=== PATIENT | male | born 1970 | race Caucasian/White ===

== ENCOUNTER 2020-01-23 17:20 | Emergency (ER) | payer OTHER ==
[2020-01-23 17:30] VITALS: RESP 18
[2020-01-23] MEDS ORDERED: IBUPROFEN 600 MG TAB PO STA (17:35)
[2020-01-23 18:06] VITALS: BP 118/77; PULSE 74; TEMP 98.3
--- NOTE | 2020-01-23 18:08 | XR ---
EXAMINATION TYPE: XR hand complete LT DATE OF EXAM: 01/23/2020 COMPARISON: None HISTORY: Pain TECHNIQUE: Three-view left hand FINDINGS: No acute fractures or dislocations are evident. Soft tissues appear within normal limits. J oint spaces and mild narrowing IMPRESSION: 1. No acute osseous abnormality. 2. Follow-up exams can be performed 7-10 days from acute trauma for continued pain.
--- NOTE | 2020-01-23 18:09 | XR ---
EXAMINATION TYPE: XR wrist complete LT DATE OF EXAM: 01/23/2020 COMPARISON: None HISTORY: Pain TECHNIQUE: 4 view left wrist FINDINGS: Acute fractures or dislocations are evident. Joint spaces appear preserved. Soft tissues ar e normal. Follow-up studies can be performed 7-10 days from acute trauma for continued pain. If there is pain a t the anatomic snuff box, nuclear medicine bone scan could be performed for additional evaluation. IMPRESSION: 1. Normal 4 view left wrist
--- NOTE | 2020-01-23 18:24 | ED ---
General Adult HPI - General Chief complaint: Fall Stated complaint: Wrist injury-[facility] Time Seen by Provider: 01/23/20 17:31 Source: patient, RN notes reviewed, old records reviewed Mode of arrival: ambulatory Limitations: no limitations - History of Present Illness Initial comments: 49-year-old male patient presents ED for chief complaint of fall on outstretched arm with left wrist pain. Patient reports that he was walking down a ladder was maybe 2 feet off the ground when he stepped down he stepped on something and lost his balance and fell on his left side. Patient had a fall on outstretched arm line on his left hip. Denies any trauma to head or neck. Chief complaint is left wrist pain. Systemic: Pt denies fatigue, fever/chills, rash. Pt denies weakness, night sweats, weight loss. Neuro: Pt denies headache, visual disturbances, syncope or pre-syncope. HEENT: Pt denies ocular discharge or irritation, otalgia, rhinorrhea, pharyngitis or notable lymphadenopathy. Cardiopulmonary: Pt denies chest pain, SOB, heart palpitations, dyspnea on exertion. Abdominal/GI: Pt denies abdominal pain, n/v/d. : Pt denies dysuria, burning w/ urination, frequency/urgency. Denies new onset urinary or bowel incontinence. Neuro: Pt denies new onset weakness, paresthesias. - Related Data Home Medications Medication Instructions Recorded Confirmed No Known Home Medications 04/04/15 04/04/15 Allergies Allergy/AdvReac Type Severity Reaction Status Date / Time meperidine HCl [From Demerol] Allergy Unknown Verified 01/23/20 17:30 Review of Systems ROS Statement: Those systems with pertinent positive or pertinent negative responses have been documented in the HPI. ROS Other: All systems not noted in ROS Statement are negative. Past Medical History Past Medical History: No Reported History History of Any Multi-Drug Resistant Organisms: None Reported Past Surgical History: Hernia Repair Past Psychological History: No Psychological Hx Reported Smoking Status: Light tobacco smoker Past Alcohol Use History: Rare Past Drug Use History: None Reported General Exam - General Exam Comments Initial Comments: Constitutional: NAD, AOX3, Pt has pleasant affect. HEENT: NC/AT, trachea midline, neck supple, no lymphadenopathy. Posterior pharynx non erythematous, without exudates. External ears appear normal, without discharge. Mucous membranes moist. Eyes PERRLA, EOM intact. There is no scleral icterus. No pallor noted. Cardiopulmonary: RRR, no murmurs, rubs or gallops, no JVD noted. Lungs CTAB in anterior and posterior lion. No peripheral edema. Abdominal exam: Abdomen soft and non-distended. Abdomen non-tender to palpation in all 4 quadrants. Bowel sounds active in LLQ. No hepatosplenomegaly. No ecchymosis Neuro: CN II-XII grossly intact. No nuchal rigidity. No raccon eyes, no huerta sign, no hemotympanum. No cervical spinal tenderness. MSK: Snuffbox tenderness is present. No other tenderness. Active range of motion is intact. No other areas of tenderness upper or lower extremities. Full active range of motion. Neurovascularly intact. Patient placed in thumb spica splint neurovascularly intact after splint placement. Limitations: no limitations Course Vital Signs 01/23/20 01/23/20 17:27 17:52 Temperature 97.8 F 98.3 F Pulse Rate 86 74 Respiratory 18 18 Rate Blood Pressure 124/79 118/77 O2 Sat by Pulse 98 94 L Oximetry Procedures - Orthopedic Splinting/Casting Injury #1 Side: left Upper Extremity Immobilizer: thumb spica Medical Decision Making - Medical Decision Making 49-year-old male patient presents to ED for 2 g of left wrist pain. Patient also has a stable, afebrile. Physical exam doesn't display tenderness to left snuffbox region. Plain films of hand and wrist are negative. Patient placed in thumb spica splint will discharge the patient orthopedic follow-up and return to ER if condition worsens. Case discussed with Dr. Garner. Disposition Clinical Impression: Wrist sprain Disposition: HOME SELF-CARE Condition: Stable Instructions (If sedation given, give patient instructions): Wrist Sprain (ED) Additional Instructions: Follow-up with orthopedic consult tomorrow. Follow up with primary care provider in 1-2 days. Continue to wear splint. Return to ER if condition worsens. Is patient prescribed a controlled substance at d/c from ED?: No Referrals: Tristen Hinojosa MD [Primary Care Provider] - 1-2 days Jack Giron DO [Doctor of Osteopathic Medicine] - 1-2 days
== END 2020-01-23 18:55 | disposition home or self-care (01) ==
LOC: EC 17:20
DX: S63.502A Unspecified sprain of left wrist, initial encounter (principal); F17.200 Nicotine dependence, unspecified, uncomplicated; Z88.8 Allergy status to other drugs, medicaments and biological substances; W11.XXXA Fall on and from ladder, initial encounter; Y92.009 Unspecified place in unspecified non-institutional (private) residence as the place of occurrence of the external cause
CPT/HCPCS: 29125; 99284